=== PATIENT | male | born 1980 | race Caucasian/White ===

== ENCOUNTER 2023-10-10 07:01 | Emergency (ER) | payer OTHER ==
[2023-10-10 07:23] VITALS: BMI 36.6
[2023-10-10] MEDS ORDERED: MECLIZINE HCL 25 MG TABLET (FP) ONE (08:12)
[2023-10-10] MEDS ORDERED: THIAMINE HCL 200 MG/2 ML VIAL ONE (08:12)
[2023-10-10] MEDS: LACTATED RINGERS SOLUTION 1,000 ML/1,000 ML INFUS.BAG IV STA ×2 (08:30→10:32)
[2023-10-10] MEDS: THIAMINE HCL 200 MG/2 ML VIAL IVPB ONE (08:30)
[2023-10-10] MEDS: MECLIZINE HCL 25 MG TABLET (FP) PO ONE (08:30)
[2023-10-10 08:35] LABS: BASO % 0.3 % (0-2.0); EOS % 0.7 % (0-4.5); HEMATOCRIT 42.6 % (35.4-49); HEMOGLOBIN 15.2 GM/dL (11.7-16.9); LYMPH % 9.2 % (8-40); MCH 31.8 pg (25.7-33.7); MCHC 35.6 g/dl (32.0-35.9); MEAN CELL VOLUME 89.4 fl (80-96); MEAN PLT VOLUME 7.9 fl (7.5-11.1); MONO % 9.2 % (3.8-10.2); NEUT % 80.6 % (42.8-82.8); PLATELET COUNT 198 10^3/uL (134-434); RBC 4.77 M/mm3 (4.00-5.60); RDW 14.1 % (11.9-15.9); WHITE BLOOD COUNT 8.2 K/mm3 (4.0-10.0)
[2023-10-10 09:06] LABS: POTASSIUM 3.9 mmol/L (3.5-5.1)
[2023-10-10 09:08] LABS: ALBUMIN 4.2 g/dl (3.4-5.0); BLOOD UREA NITROGEN 10.1 mg/dL (7-18); MAGNESIUM 1.8 mg/dL (1.8-2.4)
[2023-10-10 09:13] LABS: BILIRUBIN,TOTAL 0.8 mg/dL (0.2-1); TOT PROT 8.2 g/dl (6.4-8.2)
[2023-10-10 10:37] VITALS: TEMP 99.4
[2023-10-10 12:30] VITALS: BP 154/81; PULSE 68; RESP 18
== END 2023-10-10 12:36 | disposition home or self-care (01) ==
LOC: JER 07:01
PROC: 3E033GC Introduction of Other Therapeutic Substance into Peripheral Vein, Percutaneous Approach (ICD-10-PCS; principal; 2023-10-10)
PROC: 3E033GC Introduction of Other Therapeutic Substance into Peripheral Vein, Percutaneous Approach (ICD-10-PCS; 2023-10-10)
DX: R42 Dizziness and giddiness (principal); F10.930 Alcohol use, unspecified with withdrawal, uncomplicated
CPT/HCPCS: 36415; 71045-TC-FY; 80053; 83735; 84484; 85025; 93005; 93010; 99285-25